=== PATIENT | female | born 1985 | race Hispanic/Latino ===

== ENCOUNTER 2016-11-28 03:54 | Emergency (ER) | payer SELFPAY ==
[2016-11-28] MEDS ORDERED: diphenhydrAMINE HCl 25 MG CAP ONE (04:29)
== END 2016-11-28 04:38 | disposition home or self-care (01) ==
LOC: NAV ERS 03:54
DX: S70.362A Insect bite (nonvenomous), left thigh, initial encounter (principal); S70.361A Insect bite (nonvenomous), right thigh, initial encounter; S20.469A Insect bite (nonvenomous) of unspecified back wall of thorax, initial encounter; F17.210 Nicotine dependence, cigarettes, uncomplicated
CPT/HCPCS: 99282

== ENCOUNTER 2018-11-30 18:05 | Emergency (ER) | payer SELFPAY ==
[2018-11-30] MEDS ORDERED: predniSONE 20 MG TAB ONE (18:49)
== END 2018-11-30 18:52 | disposition home or self-care (01) ==
LOC: NAV ERS 18:05
DX: L25.5 Unspecified contact dermatitis due to plants, except food (principal); F17.210 Nicotine dependence, cigarettes, uncomplicated
CPT/HCPCS: 99282; J7512

== ENCOUNTER 2020-10-15 15:51 | Emergency (ER) | payer MEDICAID, SELFPAY | END 2020-10-15 16:20 | disposition home or self-care (01) | LOC: NAV ERS 15:51 | DX: T22.211A Burn of second degree of right forearm, initial encounter (principal); F17.210 Nicotine dependence, cigarettes, uncomplicated; X19.XXXA Contact with other heat and hot substances, initial encounter | CPT/HCPCS: 99406 ==

== ENCOUNTER 2021-02-15 19:17 | Emergency (ER) | payer MEDICAID ==
[2021-02-15 20:12] LABS: #Lymphocytes 1.4 thou/uL (1.20-3.40); #Monocytes 0.5 thou/uL (0.11-0.59); #Neutrophils 3.6 thou/uL (1.40-6.50); %Basophils 0.8 % (0.0-1.0); %Eosinophils 0.3 % (0.0-10.0); %Lymphocytes 25.3 % (21.0-51.0); %Monocytes 8.5 % (0.0-10.0); %Neutrophils 65.1 % (42.0-75.0); Hemoglobin 11.5 g/dL (12.0-16.0); Mean Corpuscular HGB CONC 30.5 g/dL (32.0-36.0); Mean Corpuscular Hemoglobin 27.6 pg (27.0-31.0); Mean Corpuscular Volume 90.5 fL (78.0-98.0); Mean Platelet Volume 9.1 fL (7.4-10.4); Platelet Count 192 thou/uL (130-400); RBC Distribution Width 12.9 % (11.5-14.5); Red Blood Cell (RBC) Count 4.17 mill/uL (4.20-5.40); White Blood Cell (WBC) Count 5.6 thou/uL (4.8-10.8)
[2021-02-15 20:30] LABS: ALT (SGPT) 11 U/L (8-55); AST (SGOT) 22 U/L (5-34); Albumin 3.9 g/dL (3.5-5.0); Alkaline Phosphatase 82 U/L (40-110); Anion Gap 13 mmol/L (10-20); BUN (Urea Nitrogen) 9 mg/dL (7.0-18.7); Bilirubin, Total 0.3 mg/dL (0.2-1.2); CK (CPK) 274 U/L (29-168); Calc. Creatinine Clearance 0 mL/min (70-130); Carbon Dioxide 23 mmol/L (22-29); Chloride 109 mmol/L (98-107); Glucose 101 mg/dL (70-105); Potassium 4.2 mmol/L (3.5-5.1); Protein, Total 6.9 g/dL (6.0-8.3); Sodium 141 mmol/L (136-145)
== END 2021-02-15 21:00 | disposition home or self-care (01) ==
LOC: NAV ERS 19:17
DX: F15.10 Other stimulant abuse, uncomplicated (principal); F12.10 Cannabis abuse, uncomplicated; F17.210 Nicotine dependence, cigarettes, uncomplicated
CPT/HCPCS: 80053; 82550; 85025; 99284

== ENCOUNTER 2022-05-27 22:46 | Emergency (ER) | payer MEDICAID, SELFPAY ==
[2022-05-27] MEDS ORDERED: Cyclobenzaprine 10 MG TAB ONE (23:11)
[2022-05-27] MEDS ORDERED: Ibuprofen 200 MG TAB ONE (23:11)
[2022-05-27 23:31] LABS: Pregnancy Test - Urine (BHCG) Negative (Negative); Pregu Control Background? CLEAR/WHITE (CLR/WHITE); Pregu Control Bar Appear? YES (CONTROL BAR); Specific Gravity 1.018 (1.002-1.036)
== END 2022-05-28 00:17 | disposition home or self-care (01) ==
LOC: NAV ERS 22:46
DX: S16.1XXA Strain of muscle, fascia and tendon at neck level, initial encounter (principal); F17.210 Nicotine dependence, cigarettes, uncomplicated; Y04.0XXA Assault by unarmed brawl or fight, initial encounter
CPT/HCPCS: 70450; 72125; 81025

== ENCOUNTER 2022-07-03 09:48 | Emergency (ER) | payer SELFPAY ==
[2022-07-03] MEDS ORDERED: Bupivacaine 0.5% 10 ML VIAL ONE (11:02)
[2022-07-03] MEDS ORDERED: Lidocaine 1% (PF) 30 ML VIAL ONE (11:02)
== END 2022-07-03 11:25 | disposition home or self-care (01) ==
LOC: NAV ERS 09:48
DX: K04.7 Periapical abscess without sinus (principal); F17.210 Nicotine dependence, cigarettes, uncomplicated
CPT/HCPCS: 64400; J2001; J3490

== ENCOUNTER 2023-04-05 23:45 | Emergency (ER) | payer OTHER | END 2023-04-05 23:58 | disposition home or self-care (01) | LOC: NAV ERS 23:45 | DX: B34.9 Viral infection, unspecified (principal); F17.210 Nicotine dependence, cigarettes, uncomplicated; F17.290 Nicotine dependence, other tobacco product, uncomplicated | CPT/HCPCS: 87081; 87430; 87804; 99283 ==